=== PATIENT | male | born 1945 | race Caucasian/White ===

== ENCOUNTER 2018-06-22 10:44 | Inpatient (IN) ==
[2018-06-14 18:16] LABS: Basophils # (Auto) 0 K/mcL (0.0-0.3); Basophils % (Auto) 0.3 % (0.0-2.0); Eosinophils # (Auto) 0 K/mcL (0.0-0.7); Eosinophils % (Auto) 0.3 % (0.0-7.0); Granulocytes % (Auto) 75.1 % (38.0-78.0); Lymphocytes # (Auto) 1.3 K/mcL (1.5-4.8); Lymphocytes % (Auto) 17.9 % (15.5-49.0); Mean Corpuscular HGB Conc 32.2 g/dL (31.0-36.0); Mean Corpuscular Hemoglobin 31.3 pg (26.0-34.0); Monocytes # (Auto) 0.5 K/mcL (0.1-0.9); Monocytes % (Auto) 6.4 % (1.0-12.0); Platelet Count 73 K/mcL (140-440); RBC 5.19 M/mcL (4.50-5.90); Red Cell Distribution Width 14.5 % (11.5-14.5)
[2018-06-14 18:30] LABS: Appearance,Urine CLEAR; Bilirubin,Urine NEG (NEG); Color,Urine YELLOW; Glucose,Urine (UA) NEGATIVE (NEG); Leukocyte Esterase,Urine NEG /uL (NEG); Protein,Urine 100 mg/dL (NEG); Specific Gravity,Urine 1.018 (1.000-1.035); Urine Blood NEG mg/dL (<0.03); Urobilinogen,Urine NEG (NEG)
[2018-06-14 18:38] LABS: Blood Urea Nitrogen 31 mg/dl (8-23)
[2018-06-14 18:44] LABS: Estimated Average Glucose(eAG) 126 mg/dL
[~2018-06-22 10:44] MED LIST: CELECOXIB 200 MG CAPSULE PO SCH; PREGABALIN 75 MG CAPSULE PO SCH; ceFAZolin 1 GM VIAL IV SCH; oxyCODONE 10 MG TAB.ER.12H PO SCH
[2018-06-22] MEDS ORDERED: PHENYLEPHRINE 10 MG/ML VIAL IV ONE (14:25)
[2018-06-22] MEDS ORDERED: fentaNYL 100 MCG/2 ML VIAL IV ONE (14:25)
[2018-06-22] MEDS ORDERED: GLYCOPYRROLATE 0.2 MG/ML VIAL IV ONE (14:25)
[2018-06-22] MEDS ORDERED: MIDAZOLAM 5 MG/5 ML VIAL IV ONE (14:25)
[2018-06-22] MEDS ORDERED: methylPREDNISolone SOD SUCC 125 MG/2 ML VIAL IV ONE (14:25)
[2018-06-22] MEDS ORDERED: TRANEXAMIC ACID 1,000 MG/10 ML VIAL IV ONE (14:25)
[2018-06-22] MEDS ORDERED: ePHEDrine 50 MG/ML AMPUL IV ONE (14:25)
[2018-06-22] MEDS ORDERED: SUCCINYLCHOLINE 20 MG/ML ML IV ONE (14:25)
[2018-06-22] MEDS ORDERED: PROPOFOL 200 MG/20 ML VIAL IV ONE (14:25)
[2018-06-22] MEDS ORDERED: LIDOCAINE HCL/PF 100 MG/5 ML SYRINGE IV ONE (14:25)
[2018-06-22] MEDS ORDERED: 0.9 % SODIUM CHLORIDE 250 ML IV SCH (15:15)
[2018-06-22] MEDS ORDERED: GENTAMICIN SULFATE 800 MG/20 ML VIAL IR ONE (15:17)
[2018-06-22] MEDS ORDERED: ATROPINE SULFATE 0.4 MG/ML VIAL IV PRN (15:27)
[2018-06-22] MEDS ORDERED: METHOCARBAMOL 1,000 MG/10 ML VIAL IV PRN (15:27)
[2018-06-22] MEDS ORDERED: METOPROLOL TARTRATE 5 MG/5 ML VIAL IV PRN (15:27)
[2018-06-22] MEDS ORDERED: diphenhydrAMINE 50 MG/ML VIAL IV PRN (15:27)
[2018-06-22] MEDS ORDERED: HYDROmorphone 2 MG/ML VIAL IV PRN (15:27)
[2018-06-22] MEDS ORDERED: NALOXONE HCL 0.4 MG/ML VIAL IV PRN (15:27)
[2018-06-22] MEDS ORDERED: ONDANSETRON 4 MG/2 ML VIAL IV PRN ×2 (15:27→15:49)
[2018-06-22] MEDS ORDERED: PROMETHAZINE 25 MG/ML VIAL IV PRN (15:27)
[2018-06-22] MEDS ORDERED: MEPERIDINE 25 MG/ML SYRINGE IV PRN (15:27)
[2018-06-22] MEDS ORDERED: FLUMAZENIL 0.1 MG/ML ML IV PRN (15:27)
[2018-06-22] MEDS ORDERED: IPRATROPIUM/ALBUTEROL 3 ML AMPUL.NEB NEB PRN (15:27)
[2018-06-22] MEDS ORDERED: ePHEDrine 50 MG/ML AMPUL IV PRN (15:27)
[2018-06-22] MEDS ORDERED: LACTATED RINGERS 1,000 ML IV SCH (15:30)
[2018-06-22] MEDS ORDERED: BISACODYL 10 MG SUPP.RECT PR PRN (15:49)
[2018-06-22] MEDS ORDERED: FLEETS ADULT ENEMA PR PRN (15:49)
[2018-06-22] MEDS ORDERED: MAGNESIUM HYDROXIDE 30 ML ORAL.SUSP PO PRN (15:49)
[2018-06-22] MEDS ORDERED: ONDANSETRON ODT 4 MG TABLET SL PRN (15:49)
[2018-06-22] MEDS ORDERED: BENZOCAINE/MENTHOL 1 LOZENGE PO PRN (15:49)
[2018-06-22] MEDS ORDERED: METHOCARBAMOL 750 MG TABLET PO PRN (15:49)
[2018-06-22] MEDS ORDERED: TRANEXAMIC ACID 1,000 MG/10 ML VIAL IV SCH (15:49)
[2018-06-22] MEDS ORDERED: POLYETHYLENE GLYCOL 3350 17 GM PACKET PO PRN (15:49)
--- NOTE | 2018-06-22 15:49 | Brief Operative Note ---
Date of procedure: 06/22/18 Pre-op diagnosis: right hip osteoarthritis Post-op diagnosis: same Procedure: right total hip arthroplasty Grafts/Implants: Yes Anesthesia: GETA Complications: none Surgeon: Phillip Ordoñez [employer] Technician: Hoda Garza Estimated blood loss (cc): 750 Specimens Removed/Pathology: none sent Condition: stable Disposition: PACU
[2018-06-22] MEDS ORDERED: CARBIDOPA/LEVODOPA CR 25/100 TABLET PO PRN (15:52)
[2018-06-22] MEDS ORDERED: ACETAMINOPHEN 1,000 MG/100 ML BOTTLE IV SCH (16:00)
[2018-06-22] MEDS ORDERED: ACETAMINOPHEN 1,000 MG/100 ML BOTTLE IV ONE (16:15)
--- NOTE | 2018-06-22 16:17 | Operative Note ---
DATE OF OPERATION: 06/22/2018 PREOPERATIVE DIAGNOSIS: Degenerative joint disease, right hip. POSTOPERATIVE DIAGNOSIS: Degenerative joint disease, right hip. PROCEDURE: Right total hip arthroplasty. SURGEON: Saba Ordoñez M.D. BUSINESS APPLICATIONS DEVELOPER SURGEON: Hoda Garza PA-C ANESTHESIA: Spinal with LMA assist. ESTIMATED BLOOD LOSS: 715 mL COMPLICATIONS: None noted. SPECIMENS REMOVED: None. DRAINS: Medium Hemovac x 1. IMPLANTS: DePuy [place] Gription acetabular shell 54 mm, DePuy [place] hole eliminator PS, DePuy [place] Altrx polyethylene acetabular liner neutral 36 x 54, DePuy femoral stem Actis DuoFix hip prosthesis cementless size 6 high collar, DePuy Biolox Delta ceramic femoral head +1.5 36 mm diameter. INDICATIONS: The patient has had a longstanding history of worsening pain in the hip that has failed conservative treatment. Radiographs have confirmed advanced degenerative joint disease. After a long discussion about treatment options, the patient elected to proceed with a hip arthroplasty. The risks and benefits were discussed with the patient in detail including, but not limited to, the risks of anesthesia, problems with the heart or lungs related to anesthesia, infection, compromise or injury to the nerves and blood vessels, deep venous thrombosis, pulmonary embolism, pneumonia, continued pain after surgery, worsening pain or symptoms after surgery, swelling, loss of motion, instability, leg length discrepancy, and need for repeat surgery. DESCRIPTION OF PROCEDURE: The patient was seen in pre-anesthesia waiting room where all questions were answered and the correct side and site were identified and marked. The patient was then brought to the operating room and administered the anesthetic and given pre-operative antibiotics. A time-out was then called. The patient was placed in the lateral decubitus position with all prominences well-padded using the Ward frame and the extremity was prepped and draped in the usual sterile fashion. Anesthesia gave the patient 1 gm of tranexamic acid via an intravenous route. A standard posterior approach was made. We dissected through the skin and subcutaneous tissue to the deep fascia. The deep fascia was split in line with the incision and a Charnley retractor was placed. We exposed, tagged, and incised the short external rotators and piriformis tendon and retracted them posteriorly to help protect the sciatic nerve which was palpated throughout the case. We then performed a T-capsulotomy and tagged the capsule edges. Prior to dislocating the hip, we set a length and offset gauge from a Steinmann pin in the iliac wing to a chad on the greater trochanter. The hip was then dislocated and a femoral neck osteotomy was performed to the pre-surgical templated level off the lesser trochanter. The head was removed and sized. We next turned our attention to the acetabulum. Retractors were placed for optimal visualization. A complete labral excision was performed. The capsule was preserved for later closure. We began reaming using anatomic landmarks with the DePuy [place] acetabular system. We medialized the cup and reamed up to provide good fill and coverage of the trial. When the trial was stable and appropriately positioned with approximately 20 degrees of anteversion and 45 degrees of abduction, we impacted the DePuy [place] cup and placed a cancellous screw in the posterior-superior quadrant. Osteophytes were removed from around the shell. We placed the trial liner and turned our attention to the femur. We placed retractors for visualization, internally rotated the femur, and established intramedullary access. We broached using the DePuy Actis stem to a stable platform medial, lateral, and rotationally with the appropriate version. We then performed a calcar reaming off the broach. Trials were then placed and optimized for leg length and stability. We used the leg length and offset guide to confirm our trials. Best stability, length, and offset characteristics were obtained with these sizes. We removed all trials and impacted the polyethylene acetabular liner in a standard fashion after a thorough irrigation. We then impacted the femoral stem to its broached location and placed the head. Final reduction was performed. Again, good stability, leg length, and offset characteristics were noted. We irrigated with three liters of antibiotic saline. We closed the capsule with #2 FiberWire. We placed a deep drain and closed the fascia with a combination of looped #2 Stratafix and #0 Vicryl. We closed the subcutaneous tissue and skin in layers out to Dermabond on the skin. A sterile pressure dressing and abduction wedge was applied. All needle and sponge counts were correct. The patient was transferred to the recovery room in stable condition. LEODAN:[email or web address] Job ID: [id number] Doc ID: [id number] Saba Ordoñez MD
[2018-06-22] MEDS: fentaNYL 100 MCG/2 ML VIAL IV PRN ×4 (16:35→17:10)
--- NOTE | 2018-06-22 16:45 | XRay Report ---
CLINICAL INFORMATION: Post-op Total Hip COMPARISON: None. FINDINGS: Right total hip prostheses is anatomically aligned. No osseous abnormality. Soft tissue swelling over the surgical site as expected IMPRESSION: Negative Interpreted and Authenticated by: Phillip Tong 06/22/18
[2018-06-22] MEDS: LACTATED RINGERS 1,000 ML IV SCH (17:30)
[2018-06-22] MEDS: HYDROcodone/APAP 10/325MG TABLET PO PRN ×2 (18:31→22:47)
[2018-06-22] MEDS: morphine 15 MG TABLET PO SCH (20:54)
[2018-06-22] MEDS: DOCUSATE SODIUM 100 MG CAPSULE PO SCH (20:54)
[2018-06-22] MEDS: METOPROLOL TARTRATE 50 MG TABLET PO SCH (20:54)
[2018-06-22] MEDS: LOSARTAN 25 MG TABLET PO SCH (20:55)
[2018-06-22] MEDS ORDERED: SENNOSIDES 1 TABLET PO SCH (21:00)
[2018-06-22] MEDS ORDERED: TAMSULOSIN 0.4 MG CAPSULE PO SCH (21:00)
[2018-06-22] MEDS ORDERED: SIMVASTATIN 20 MG TABLET PO SCH (21:00)
[2018-06-22] MEDS: ceFAZolin 1 GM VIAL IV SCH (21:55)
[2018-06-22] MEDS: 0.9 % SODIUM CHLORIDE 10 ML SYRINGE IV SCH (22:48)
[2018-06-23] MEDS: LACTATED RINGERS 1,000 ML IV SCH ×2 (01:30→08:49)
[2018-06-23] MEDS: HYDROcodone/APAP 10/325MG TABLET PO PRN ×2 (02:47→06:02)
[2018-06-23] MEDS: ceFAZolin 1 GM VIAL IV SCH (05:39)
[2018-06-23] MEDS: 0.9 % SODIUM CHLORIDE 10 ML SYRINGE IV SCH (06:02)
--- NOTE | 2018-06-23 07:26 | Orthopedic Progress Note ---
Subjective Patient information: Note initiated : 06/23/18 at 7:24 am Service Date, if different from initiated Date: [] Patient: Logan Matamoros 73 y/o M admitted on 06/22/18 for Right Total Hip Arthroplasty. Chief Complaint: [] Interval history: doing well. pain under control Objective Vital signs: Vital Signs Temp Pulse Pulse Resp BP Pulse Ox 06/23/18 03:10 97.6 F 64 14 148/78 100 06/23/18 00:00 97.7 F 69 14 130/79 99 06/22/18 21:26 97.7 F 77 14 157/82 98 06/22/18 21:11 73 150/90 98 06/22/18 20:57 75 162/83 99 06/22/18 20:42 65 143/74 98 06/22/18 20:27 68 140/80 99 06/22/18 20:12 60 138/76 98 06/22/18 19:57 70 141/75 99 06/22/18 18:55 60 143/65 98 06/22/18 18:25 71 138/78 98 06/22/18 17:55 70 124/64 95 06/22/18 17:45 97.7 F 64 14 121/70 94 06/22/18 17:30 68 97 06/22/18 17:10 97.6 F 73 19 110/60 95 06/22/18 17:00 97 F 72 19 112/66 94 06/22/18 16:50 97.1 F 77 20 111/65 92 06/22/18 16:40 97.1 F 77 20 103/62 93 06/22/18 16:25 81 20 164/86 06/22/18 16:20 87 22 136/85 100 06/22/18 16:15 87 21 131/76 100 06/22/18 16:10 97.7 F 88 18 118/74 97 06/22/18 11:57 180/94 06/22/18 11:54 96.9 F L 55 L 14 196/61 98 06/22/18 10:44 18 Intake and Output 06/22/18 06/23/18 06/23/18 21:59 05:59 13:59 Intake Total 1850 / 1850 1000 / 1000 Output Total 1565 / 1565 225 / 225 200 / 200 Balance 285 / 285 775 / 775 -200 / -200 Intake: IV 50 / 50 1000 / 1000 Lactated Ringers 1,000 ml @ 125 1000 / 1000 mls/hr IV .Q8H [facility] Rx#: [id number] IV - Manual Only 1800 / 1800 Output: Drainage 240 / 240 200 / 200 Right Hip Hemovac 240 / 240 200 / 200 Void Amount 25 / 25 225 / 225 Estimated Blood Loss 1300 / 1300 Other: Meal Dinner Percent of Meal Consumed 50% Feeding Ability Independent Urine Appearance Clear Clear Urine Color Pale Straw Urine Odor Normal Normal # Voids 1 Weight 181 lb 8 oz Intake & Output: Intake & Output 06/22/18 06/23/18 06/23/18 21:59 05:59 13:59 Intake Total 1850 / 1850 1000 / 1000 Output Total 1565 / 1565 225 / 225 200 / 200 Balance 285 / 285 775 / 775 -200 / -200 Weight 181 lb 8 oz Intake: IV 50 / 50 1000 / 1000 Lactated Ringers 1,000 ml @ 125 1000 / 1000 mls/hr IV .Q8H [facility] Rx#: [id number] IV - Manual Only 1800 / 1800 Output: Drainage 240 / 240 200 / 200 Right Hip Hemovac 240 / 240 200 / 200 Void Amount 25 / 25 225 / 225 Estimated Blood Loss 1300 / 1300 Other: Meal Dinner Percent of Meal Consumed 50% Feeding Ability Independent Urine Appearance Clear Clear Urine Color Pale Straw Urine Odor Normal Normal # Voids 1 Incision: Yes healing Incision clean and dry: Yes Dressing: Yes clean, Yes dry, Yes intact Weight bearing status: full Neurological exam IM: Yes abnormal gait, Yes alert, Yes oriented X3, Yes motor sensory intact, Yes neurovascular intact Extremities exam IM: No calf tenderness, Yes normal inspection, Yes Foot pink and warm, Yes neurovascular intact - Labs CBC & BMP: 06/23/18 04:30 06/14/18 15:51 Labs: Orthopedic Labs 06/23/18 06/14/18 04:30 15:51 PT 15.3 H 12.8 INR 1.2 H 1.0 06/23/18 06/14/18 04:30 15:51 Hgb 12.6 L 16.2 Hct 38.5 L 50.4 Assessment and Plan (1) Hip osteoarthritis pod 1 s/p avril wbat pain control dvt prophylaxis dc planning Status: Acute
--- NOTE | 2018-06-23 07:27 | Discharge Summary ---
Ortho Discharge - SAY - Patient Instructions Diet: Regular Diet Activity: ambulate with assistive device, weight bearing as tolerated Total Hip Protocol: Follow activity instructions as provided by Physical Therapy. Dressing Care: May shower in 2 days - Problem Maintenance (1) Hip osteoarthritis Status: Acute - Follow Up Plan Follow Up Appointments: Hoda Garza PA-C [Physician Licensed [employer] App[employer]] - 07/07/18 11:20 am Disposition: Home, Self-Care Prognosis: Good Rehab Potential: Good I certify that the patient requires SNF services: No Overall status at discharge: patient is progressing back to baseline
[2018-06-23] MEDS ORDERED: predniSONE 1 MG TABLET PO SCH (08:00)
[2018-06-23] MEDS: METOPROLOL TARTRATE 50 MG TABLET PO SCH (08:48)
[2018-06-23] MEDS: morphine 15 MG TABLET PO SCH (08:48)
[2018-06-23] MEDS: DOCUSATE SODIUM 100 MG CAPSULE PO SCH (08:48)
[2018-06-23] MEDS: LOSARTAN 25 MG TABLET PO SCH (08:50)
[2018-06-23] MEDS ORDERED: LORATADINE 10 MG TABLET PO SCH (09:00)
[2018-06-23] MEDS ORDERED: ASPIRIN 325 MG ENTERIC COATED TABLET PO SCH (09:00)
[2018-06-23] MEDS ORDERED: TESTOSTERONE 50 MG TD SCH (09:00)
== END 2018-06-23 11:15 | disposition home or self-care (01) | DRG 470 ==
LOC: MEDSUR 10:44
PROVIDERS: ADMIT Orthopaedic Surgery Sports Medicine; ATTEND Orthopaedic Surgery Sports Medicine
CPT/HCPCS: 73502; 97161; C1776; J0131; J0330; J0690; J1580; J2001; J2250; J2270; J2370; J2800; J2930; J3010; J7120